=== PATIENT | female | born 1940 | race Caucasian/White ===

== ENCOUNTER 2022-01-08 16:38 | Inpatient (IN) ==
[2022-01-08] MEDS ORDERED: hydrALAZINE 20 MG/1 ML VIAL IV STA ×2 (20:15→20:56)
[2022-01-08 20:32] LABS: Basophils % 0.1 % (0.0-0.8); Eosinophils # 0.1 10*3/uL (0.0-0.87); Eosinophils % 1.4 % (0.00-10.9); Hematocrit 38.3 VOL% (35.7-47.0); Hemoglobin 12.1 GM/DL (12.0-16.0); Immature Granulocytes % 0.6 %; Immature Granulocytes Absolute 0.05 #; Lymphocytes # 1.1 10*3/uL (1.4-4.0); Mean Corpuscular HGB Conc 31.6 GM/DL (32-36); Mean Corpuscular Volume 96.5 FL (87-102); Mean Platelet Volume 10.9 FL (9.6-12.0); Monocytes % 8.3 % (1.7-12.7); Neutrophils % 76.6 % (38.7-73.9); Platelet Count 192 T/CUMM (130-400); Red Blood Count 3.97 MC/CUMM (3.8-5.5); Red Cell Distribution Width 14.5 % (9.3-17.3); White Blood Count 8.5 T/CUMM (4-12)
[2022-01-08 20:44] LABS: INR 1.3
[2022-01-08 20:54] LABS: Albumin 3.7 G/DL (3.4-5.0); Bilirubin,Total 0.6 MG/DL (0.20-1.00); Osmolality,Calculated 277.1 MOS/KG (273-304); Potassium 4.3 MMOL/L (3.5-5.1); Total Protein 7.6 G/DL (6.4-8.2)
[2022-01-08] MEDS ORDERED: GLUCAGON 1 MG VIAL IM PRN (22:33)
[2022-01-08] MEDS ORDERED: hydrALAZINE 20 MG/1 ML VIAL IV PRN (22:33)
[2022-01-08] MEDS ORDERED: ONDANSETRON 4 MG/2 ML VIAL IV PRN (22:33)
[2022-01-08] MEDS ORDERED: MAGNESIUM SULF RIDER 4 GM/100 ML PREMIX IV PRN (22:44)
[2022-01-08] MEDS ORDERED: MAGNESIUM SULF RIDER 2 GM/50 ML PREMIX IV PRN (22:44)
[2022-01-08] MEDS ORDERED: POTASSIUM CHLORIDE 20 MEQ TABLET PO PRN (22:44)
[2022-01-08] MEDS ORDERED: POTASSIUM CHLORIDE RIDER 10 MEQ/100 ML PREMIX IV PRN (22:44)
[2022-01-08] MEDS ORDERED: DEXTROSE 10% 250 ML BAG IV PRN (22:52)
[2022-01-08] MEDS ORDERED: SODIUM CHLORIDE 0.9% 1,000 ML IV SCH (23:00)
[2022-01-08] MEDS ORDERED: ENOXAPARIN 40 MG/0.4 ML SYRINGE SUBCUT SCH (23:00)
[2022-01-08 23:33] LABS: Bacteria,Urine Occasional /HPF (Few); Bilirubin,Urine Negative (Negative); Blood, Urine Negative (Negative); Glucose,Urine (UA) Negative (Negative); Ketones,Urine 5 mg/dL (Negative); Nitrite,Urine Negative (Negative); Protein,Urine Negative; RBC,Urine <1 /HPF (0-4); Squamous Epithelial Cell,Urine Occasional /HPF (0-10); Urine Appearance CLEAR (Clear); Urine Color Straw (Yellow); Urine Specific Gravity 1.008 (1.001-1.035); Urine Urobilinogen < 2.0 EU/DL (<2.0)
[2022-01-09 02:46] LABS: Calcium 9.3 MG/DL (8.5-10.1); Osmolality,Calculated 281.8 MOS/KG (273-304); Potassium 3.8 MMOL/L (3.5-5.1); Risk Ratio 2.4; Thyroid Stimulating Hormone 1.8 uIU/ml (0.358-3.74)
[2022-01-09 03:12] LABS: Basophils % 0.4 % (0.0-0.8); Eosinophils # 0.1 10*3/uL (0.0-0.87); Eosinophils % 1.4 % (0.00-10.9); Hematocrit 38.1 VOL% (35.7-47.0); Immature Granulocytes % 0.7 %; Immature Granulocytes Absolute 0.06 #; Lymphocytes # 1.3 10*3/uL (1.4-4.0); Lymphocytes % 15.5 % (21.3-54.2); Mean Corpuscular HGB Conc 31.5 GM/DL (32-36); Mean Platelet Volume 11.4 FL (9.6-12.0); Monocytes % 6.7 % (1.7-12.7); Neutrophils % 75.3 % (38.7-73.9); Platelet Count 202 T/CUMM (130-400); Red Blood Count 3.97 MC/CUMM (3.8-5.5); Red Cell Distribution Width 14.6 % (9.3-17.3); White Blood Count 8.1 T/CUMM (4-12)
[2022-01-09] MEDS ORDERED: cloNIDine 0.1 MG TABLET PO PRN (08:51)
[2022-01-09] MEDS ORDERED: ACEBUTOLOL 400 MG CAPSULE PO SCH (09:00)
[2022-01-09] MEDS ORDERED: ASPIRIN EC 81 MG TABLET PO SCH (09:00)
[2022-01-09] MEDS: PANTOPRAZOLE 40 MG TABLET PO SCH (12:01)
[2022-01-09] MEDS: LOSARTAN 50 MG TABLET PO SCH ×2 (12:01→21:15)
[2022-01-09] MEDS: ROSUVASTATIN 20 MG TABLET PO SCH (12:01)
[2022-01-09] MEDS: DOXAZOSIN 4 MG TABLET PO SCH ×2 (12:02→21:15)
[2022-01-09] MEDS: LACTOBACILLUS ACIDOPHILUS/BULGARICUS 1 PACKET PO SCH (12:03)
[2022-01-09] MEDS: DEXTRIN PO SCH ×2 (12:08→21:16)
[2022-01-09] MEDS: DOCUSATE SODIUM 100 MG CAPSULE PO SCH ×2 (12:08→21:15)
[2022-01-09] MEDS ORDERED: DOPamine 800 MG/250 ML PREMIX IV ONE (14:52)
[2022-01-09] MEDS ORDERED: ATROPINE 1 MG/10 ML SYRINGE ONE (15:17)
[2022-01-09] MEDS ORDERED: VANCOMYCIN INJ 500 MG in SODIUM CHLORIDE 0.9% 100 ML IV ONE (15:37)
[2022-01-09] MEDS ORDERED: VANCOMYCIN 500 MG VIAL IRRIG ONE (15:37)
[2022-01-09] MEDS ORDERED: SODIUM CHLORIDE 0.9% 1,000 ML IV SCH (16:00)
[2022-01-09] MEDS ORDERED: ONDANSETRON 4 MG/2 ML VIAL ONE (16:09)
[2022-01-09] MEDS ORDERED: HEPARIN/NACL 0.9% 2 UNITS/ML 1,000 UNIT/500 ML BAG IV ONE ×2 (16:46→17:15)
[2022-01-09] MEDS ORDERED: LIDOCAINE 1% 20 ML VIAL ONE (16:46)
[2022-01-09] MEDS ORDERED: VANCOMYCIN 500 MG VIAL ONE (17:02)
[2022-01-09] MEDS ORDERED: fentaNYL 100 MCG/2 ML VIAL ONE (17:18)
[2022-01-09] MEDS ORDERED: MIDAZOLAM 2 MG/2 ML VIAL ONE (17:18)
[2022-01-09] MEDS ORDERED: TISSUE ADHESIVE 1 EACH APPLICATOR TOP ONE (18:20)
[2022-01-09] MEDS ORDERED: DOPamine 800 MG/250 ML PREMIX IV PRN (19:00)
[2022-01-09 20:31] LABS: Basophils % 0.1 % (0.0-0.8); Eosinophils % 0.4 % (0.00-10.9); Hematocrit 36.3 VOL% (35.7-47.0); Hemoglobin 11.3 GM/DL (12.0-16.0); Immature Granulocytes % 0.8 %; Immature Granulocytes Absolute 0.09 #; Lymphocytes # 0.8 10*3/uL (1.4-4.0); Lymphocytes % 6.8 % (21.3-54.2); Mean Corpuscular HGB Conc 31.1 GM/DL (32-36); Mean Corpuscular Volume 98.6 FL (87-102); Mean Platelet Volume 10.7 FL (9.6-12.0); Monocytes % 6.1 % (1.7-12.7); Neutrophils % 85.8 % (38.7-73.9); Platelet Count 172 T/CUMM (130-400); Red Blood Count 3.68 MC/CUMM (3.8-5.5); Red Cell Distribution Width 14.7 % (9.3-17.3); White Blood Count 11.4 T/CUMM (4-12)
[2022-01-09 20:51] LABS: Albumin 3.1 G/DL (3.4-5.0); Bilirubin,Total 0.5 MG/DL (0.20-1.00); Calcium 8.1 MG/DL (8.5-10.1); Osmolality,Calculated 282.8 MOS/KG (273-304); Potassium 4.1 MMOL/L (3.5-5.1); Total Protein 7.2 G/DL (6.4-8.2)
[2022-01-10 00:57] LABS: Bacteria,Urine Occasional /HPF (Few); Bilirubin,Urine Negative (Negative); Blood, Urine Small mg/dL (Negative); Glucose,Urine (UA) Negative (Negative); Ketones,Urine Negative (Negative); Nitrite,Urine Negative (Negative); Protein,Urine 30 MG/DL; RBC,Urine 3 /HPF (0-4); Squamous Epithelial Cell,Urine Occasional /HPF (0-10); Urine Appearance CLEAR (Clear); Urine Color Yellow (Yellow); Urine Specific Gravity 1.057 (1.001-1.035); Urine Urobilinogen < 2.0 EU/DL (<2.0)
[2022-01-10 04:28] LABS: Basophils % 0.1 % (0.0-0.8); Eosinophils % 0.4 % (0.00-10.9); Hematocrit 31.4 VOL% (35.7-47.0); Immature Granulocytes % 0.8 %; Immature Granulocytes Absolute 0.08 #; Lymphocytes # 0.9 10*3/uL (1.4-4.0); Lymphocytes % 9.1 % (21.3-54.2); Mean Corpuscular HGB Conc 31.8 GM/DL (32-36); Mean Corpuscular Volume 96.3 FL (87-102); Mean Platelet Volume 10.9 FL (9.6-12.0); Monocytes % 8.6 % (1.7-12.7); Platelet Count 163 T/CUMM (130-400); Red Blood Count 3.26 MC/CUMM (3.8-5.5); Red Cell Distribution Width 14.6 % (9.3-17.3); White Blood Count 9.7 T/CUMM (4-12)
[2022-01-10 04:48] LABS: Calcium 7.3 MG/DL (8.5-10.1); Osmolality,Calculated 290.3 MOS/KG (273-304); Potassium 4.1 MMOL/L (3.5-5.1)
[2022-01-10] MEDS: LEVOTHYROXINE 50 MCG TABLET PO SCH (06:29)
[2022-01-10] MEDS: ACETAMINOPHEN 325 MG TABLET PO PRN (06:40)
[2022-01-10] MEDS: LOSARTAN 50 MG TABLET PO SCH ×2 (09:50→20:44)
[2022-01-10] MEDS: LACTOBACILLUS ACIDOPHILUS/BULGARICUS 1 PACKET PO SCH (09:50)
[2022-01-10] MEDS: DOXAZOSIN 4 MG TABLET PO SCH ×2 (09:50→20:43)
[2022-01-10] MEDS: DOCUSATE SODIUM 100 MG CAPSULE PO SCH ×2 (09:50→20:44)
[2022-01-10] MEDS: ROSUVASTATIN 20 MG TABLET PO SCH (09:50)
[2022-01-10] MEDS: PANTOPRAZOLE 40 MG TABLET PO SCH (09:50)
[2022-01-10] MEDS: ACEBUTOLOL 200 MG CAPSULE PO SCH ×2 (13:30→20:44)
[2022-01-10] MEDS: DEXTRIN PO SCH ×2 (14:23→20:45)
[2022-01-11] MEDS: LEVOTHYROXINE 50 MCG TABLET PO SCH (06:32)
[2022-01-11 06:51] LABS: Basophils % 0.1 % (0.0-0.8); Eosinophils # 0.1 10*3/uL (0.0-0.87); Eosinophils % 1.5 % (0.00-10.9); Hematocrit 33.4 VOL% (35.7-47.0); Hemoglobin 10.4 GM/DL (12.0-16.0); Immature Granulocytes % 0.5 %; Immature Granulocytes Absolute 0.04 #; Lymphocytes # 0.9 10*3/uL (1.4-4.0); Lymphocytes % 11.4 % (21.3-54.2); Mean Corpuscular HGB Conc 31.1 GM/DL (32-36); Mean Corpuscular Volume 97.9 FL (87-102); Mean Platelet Volume 11.2 FL (9.6-12.0); Monocytes % 7.6 % (1.7-12.7); Neutrophils % 78.9 % (38.7-73.9); Platelet Count 122 T/CUMM (130-400); Red Blood Count 3.41 MC/CUMM (3.8-5.5); Red Cell Distribution Width 14.9 % (9.3-17.3); White Blood Count 7.8 T/CUMM (4-12)
[2022-01-11 07:06] LABS: Calcium 7.8 MG/DL (8.5-10.1); Osmolality,Calculated 283.5 MOS/KG (273-304)
[2022-01-11 07:26] LABS: Anisocytosis 1+; Platelet Estimate Adequate
[2022-01-11 07:27] LABS: Macrocytosis Slight
[2022-01-11] MEDS: DOXAZOSIN 4 MG TABLET PO SCH ×3 (07:51→20:45)
[2022-01-11] MEDS: ROSUVASTATIN 20 MG TABLET PO SCH ×2 (07:51→09:27)
[2022-01-11] MEDS: LOSARTAN 50 MG TABLET PO SCH ×3 (07:52→20:45)
[2022-01-11] MEDS: PANTOPRAZOLE 40 MG TABLET PO SCH ×2 (07:52→09:27)
[2022-01-11] MEDS: ACEBUTOLOL 200 MG CAPSULE PO SCH ×2 (07:53→09:27)
[2022-01-11] MEDS: LACTOBACILLUS ACIDOPHILUS/BULGARICUS 1 PACKET PO SCH (08:05)
[2022-01-11] MEDS: DOCUSATE SODIUM 100 MG CAPSULE PO SCH ×2 (08:05→20:45)
[2022-01-11] MEDS: DEXTRIN PO SCH ×2 (09:27→20:51)
[2022-01-11] MEDS: ACETAMINOPHEN 325 MG TABLET PO PRN (09:30)
[2022-01-11] MEDS: ACEBUTOLOL 400 MG CAPSULE PO SCH (20:51)
[2022-01-12] MEDS: LEVOTHYROXINE 50 MCG TABLET PO SCH (06:18)
[2022-01-12 07:25] LABS: Calcium 7.6 MG/DL (8.5-10.1); Osmolality,Calculated 286.1 MOS/KG (273-304); Potassium 3.8 MMOL/L (3.5-5.1)
[2022-01-12] MEDS: PANTOPRAZOLE 40 MG TABLET PO SCH (09:24)
[2022-01-12] MEDS: LACTOBACILLUS ACIDOPHILUS/BULGARICUS 1 PACKET PO SCH (09:24)
[2022-01-12] MEDS: ROSUVASTATIN 20 MG TABLET PO SCH (09:25)
[2022-01-12] MEDS: LOSARTAN 50 MG TABLET PO SCH ×2 (09:25→20:33)
[2022-01-12] MEDS: DOXAZOSIN 4 MG TABLET PO SCH ×2 (09:25→20:33)
[2022-01-12] MEDS: ACEBUTOLOL 400 MG CAPSULE PO SCH (10:23)
[2022-01-12] MEDS: DOCUSATE SODIUM 100 MG CAPSULE PO SCH ×2 (10:23→20:36)
[2022-01-12] MEDS: DEXTRIN PO SCH ×2 (10:23→20:30)
[2022-01-12] MEDS ORDERED: ACEBUTOLOL 400 MG CAPSULE PO SCH (11:30)
[2022-01-12] MEDS: ACEBUTOLOL 200 MG CAPSULE PO SCH ×2 (13:22→20:33)
[2022-01-13 04:42] LABS: Basophils % 0.3 % (0.0-0.8); Eosinophils # 0.1 10*3/uL (0.0-0.87); Hematocrit 30.7 VOL% (35.7-47.0); Hemoglobin 9.6 GM/DL (12.0-16.0); Immature Granulocytes % 0.7 %; Immature Granulocytes Absolute 0.04 #; Lymphocytes % 16.5 % (21.3-54.2); Mean Corpuscular HGB Conc 31.3 GM/DL (32-36); Mean Corpuscular Volume 97.2 FL (87-102); Mean Platelet Volume 11.5 FL (9.6-12.0); Monocytes % 9.4 % (1.7-12.7); Neutrophils % 71.1 % (38.7-73.9); Platelet Count 106 T/CUMM (130-400); Red Blood Count 3.16 MC/CUMM (3.8-5.5); Red Cell Distribution Width 14.8 % (9.3-17.3); White Blood Count 5.9 T/CUMM (4-12)
[2022-01-13 05:07] LABS: Calcium 7.9 MG/DL (8.5-10.1); Osmolality,Calculated 282.4 MOS/KG (273-304)
[2022-01-13] MEDS: LEVOTHYROXINE 50 MCG TABLET PO SCH (06:18)
[2022-01-13] MEDS: DOXAZOSIN 4 MG TABLET PO SCH ×2 (09:24→20:45)
[2022-01-13] MEDS: LOSARTAN 50 MG TABLET PO SCH ×2 (09:25→20:46)
[2022-01-13] MEDS: DOCUSATE SODIUM 100 MG CAPSULE PO SCH ×2 (09:25→20:45)
[2022-01-13] MEDS: ROSUVASTATIN 20 MG TABLET PO SCH (09:26)
[2022-01-13] MEDS: LACTOBACILLUS ACIDOPHILUS/BULGARICUS 1 PACKET PO SCH (09:27)
[2022-01-13] MEDS: PANTOPRAZOLE 40 MG TABLET PO SCH (09:27)
[2022-01-13] MEDS: DEXTRIN PO SCH ×2 (09:27→20:46)
[2022-01-13] MEDS: ACEBUTOLOL 200 MG CAPSULE PO SCH ×2 (09:28→20:46)
[2022-01-13] MEDS: ACETAMINOPHEN 325 MG TABLET PO PRN (22:14)
[2022-01-14] MEDS: LEVOTHYROXINE 50 MCG TABLET PO SCH (06:21)
[2022-01-14] MEDS: DEXTRIN PO SCH (08:25)
[2022-01-14] MEDS ORDERED: LORazepam 1 MG TABLET PO ONE (08:46)
[2022-01-14] MEDS: ROSUVASTATIN 20 MG TABLET PO SCH (08:46)
[2022-01-14] MEDS: PANTOPRAZOLE 40 MG TABLET PO SCH (08:46)
[2022-01-14] MEDS: LOSARTAN 50 MG TABLET PO SCH (08:46)
[2022-01-14] MEDS: DOXAZOSIN 4 MG TABLET PO SCH (08:46)
[2022-01-14] MEDS: LACTOBACILLUS ACIDOPHILUS/BULGARICUS 1 PACKET PO SCH (08:47)
[2022-01-14] MEDS: DOCUSATE SODIUM 100 MG CAPSULE PO SCH (08:59)
[2022-01-14] MEDS: ACEBUTOLOL 200 MG CAPSULE PO SCH (09:56)
[2022-01-14 12:24] VITALS: BP 125/45
== END 2022-01-14 14:07 | disposition home or self-care (01) | DRG 242 ==
LOC: N.ED 16:38 → N.TELES 22:33 → SUATTDRO 22:33 → N.TELES 23:27 → N.ICU 01-09 15:04 → N.TELES 01-11 13:47
PROVIDERS: ADMIT Internal Medicine; ATTEND Internal Medicine

== ENCOUNTER 2022-02-15 13:53 | Inpatient (IN) ==
[2022-02-15 14:26] LABS: Basophils % 0.4 % (0.0-0.8); Eosinophils # 0.1 10*3/uL (0.0-0.87); Eosinophils % 1.9 % (0.00-10.9); Hematocrit 30.1 VOL% (35.7-47.0); Hemoglobin 9.5 GM/DL (12.0-16.0); Immature Granulocytes % 0.6 %; Immature Granulocytes Absolute 0.03 #; Lymphocytes # 0.8 10*3/uL (1.4-4.0); Lymphocytes % 16.1 % (21.3-54.2); Mean Corpuscular HGB Conc 31.6 GM/DL (32-36); Mean Corpuscular Volume 98.7 FL (87-102); Mean Platelet Volume 11.6 FL (9.6-12.0); Monocytes % 7.7 % (1.7-12.7); Neutrophils % 73.3 % (38.7-73.9); Platelet Count 122 T/CUMM (130-400); Red Blood Count 3.05 MC/CUMM (3.8-5.5); Red Cell Distribution Width 16.9 % (9.3-17.3); White Blood Count 4.8 T/CUMM (4-12)
[2022-02-15 14:39] LABS: INR 1.3; PT Patient Result 14.5 SECS (10.5-12.0); Partial Thromboplastin Time 27.9 SECS (23.8-32.1)
[2022-02-15 14:52] LABS: Albumin 3.4 G/DL (3.4-5.0); Bilirubin,Total 0.8 MG/DL (0.20-1.00); Calcium 8.8 MG/DL (8.5-10.1); Osmolality,Calculated 287.1 MOS/KG (273-304); Potassium 4.3 MMOL/L (3.5-5.1); Total Protein 6.8 G/DL (6.4-8.2)
[2022-02-15] MEDS ORDERED: hydrALAZINE 20 MG/1 ML VIAL IV PRN (15:49)
[2022-02-15] MEDS ORDERED: diphenhydrAMINE CAP 25 MG CAPSULE PO PRN (15:49)
[2022-02-15] MEDS ORDERED: LOSARTAN 50 MG TABLET PO SCH (21:00)
[2022-02-15] MEDS ORDERED: DEXTRIN PO SCH (21:00)
[2022-02-15] MEDS: DOXAZOSIN 4 MG TABLET PO SCH (23:04)
[2022-02-16 04:57] LABS: Basophils % 0.2 % (0.0-0.8); Eosinophils # 0.1 10*3/uL (0.0-0.87); Eosinophils % 1.6 % (0.00-10.9); Hematocrit 28.3 VOL% (35.7-47.0); Hemoglobin 8.7 GM/DL (12.0-16.0); Immature Granulocytes % 0.5 %; Immature Granulocytes Absolute 0.02 #; Lymphocytes # 0.8 10*3/uL (1.4-4.0); Lymphocytes % 18.5 % (21.3-54.2); Mean Corpuscular HGB Conc 30.7 GM/DL (32-36); Mean Corpuscular Volume 97.9 FL (87-102); Monocytes % 8.3 % (1.7-12.7); Neutrophils % 70.9 % (38.7-73.9); Platelet Count 118 T/CUMM (130-400); Red Blood Count 2.89 MC/CUMM (3.8-5.5); Red Cell Distribution Width 16.9 % (9.3-17.3); White Blood Count 4.3 T/CUMM (4-12)
[2022-02-16 05:18] LABS: Potassium 4.3 MMOL/L (3.5-5.1)
[2022-02-16] MEDS: LEVOTHYROXINE 50 MCG TABLET PO SCH (06:09)
[2022-02-16] MEDS: LOSARTAN 25 MG TABLET PO SCH ×2 (09:04→22:00)
[2022-02-16] MEDS: PANTOPRAZOLE 40 MG TABLET PO SCH (09:05)
[2022-02-16] MEDS: DOXAZOSIN 4 MG TABLET PO SCH ×2 (09:05→21:00)
[2022-02-16] MEDS: cilostazoL 100 MG TABLET PO SCH (09:05)
[2022-02-17 05:26] LABS: Basophils % 0.2 % (0.0-0.8); Eosinophils # 0.1 10*3/uL (0.0-0.87); Eosinophils % 1.6 % (0.00-10.9); Hemoglobin 8.7 GM/DL (12.0-16.0); Immature Granulocytes % 0.6 %; Immature Granulocytes Absolute 0.03 #; Lymphocytes # 0.9 10*3/uL (1.4-4.0); Lymphocytes % 17.2 % (21.3-54.2); Mean Corpuscular HGB Conc 31.1 GM/DL (32-36); Mean Corpuscular Volume 98.9 FL (87-102); Mean Platelet Volume 11.1 FL (9.6-12.0); Neutrophils % 70.4 % (38.7-73.9); Platelet Count 126 T/CUMM (130-400); Red Blood Count 2.83 MC/CUMM (3.8-5.5); Red Cell Distribution Width 17.2 % (9.3-17.3)
[2022-02-17 05:44] LABS: Calcium 8.6 MG/DL (8.5-10.1)
[2022-02-17] MEDS: LEVOTHYROXINE 50 MCG TABLET PO SCH (06:00)
[2022-02-17] MEDS ORDERED: TISSUE ADHESIVE 1 EACH APPLICATOR TOP ONE (11:57)
[2022-02-17] MEDS ORDERED: HEPARIN/NACL 0.9% 2 UNITS/ML 1,000 UNIT/500 ML BAG IV ONE (11:57)
[2022-02-17] MEDS ORDERED: VANCOMYCIN 500 MG VIAL IRRIG ONE (12:30)
[2022-02-17] MEDS ORDERED: VANCOMYCIN INJ 500 MG in SODIUM CHLORIDE 0.9% 100 ML IV ONE (12:30)
[2022-02-17] MEDS ORDERED: DIAZEPAM 5 MG TABLET PO ONE (12:30)
[2022-02-17] MEDS ORDERED: diphenhydrAMINE CAP 25 MG CAPSULE PO ONE (12:30)
[2022-02-17] MEDS: LOSARTAN 25 MG TABLET PO SCH ×2 (12:54→22:13)
[2022-02-17] MEDS: DOXAZOSIN 4 MG TABLET PO SCH ×2 (12:54→22:13)
[2022-02-17] MEDS: PANTOPRAZOLE 40 MG TABLET PO SCH (12:54)
[2022-02-17] MEDS ORDERED: VANCOMYCIN 500 MG VIAL ONE (13:14)
[2022-02-17] MEDS ORDERED: MIDAZOLAM 2 MG/2 ML VIAL ONE (13:26)
[2022-02-17] MEDS ORDERED: fentaNYL 100 MCG/2 ML VIAL ONE (13:34)
[2022-02-17] MEDS: cilostazoL 100 MG TABLET PO SCH (18:15)
[2022-02-18] MEDS: LEVOTHYROXINE 50 MCG TABLET PO SCH (06:26)
[2022-02-18 08:14] VITALS: BP 157/71
[2022-02-18] MEDS: cilostazoL 100 MG TABLET PO SCH (09:28)
[2022-02-18] MEDS: PANTOPRAZOLE 40 MG TABLET PO SCH (09:28)
[2022-02-18] MEDS: LOSARTAN 25 MG TABLET PO SCH (09:28)
[2022-02-18] MEDS: DOXAZOSIN 4 MG TABLET PO SCH (09:28)
== END 2022-02-18 10:50 | disposition home or self-care (01) | DRG 261 ==
LOC: N.ED 13:53 → N.EDINP 15:47 → N.TELEN 17:29
PROVIDERS: ADMIT Internal Medicine Cardiovascular Disease; ATTEND Internal Medicine Cardiovascular Disease